=== PATIENT | female | born 1995 ===

== ENCOUNTER 2022-04-20 01:06 | Emergency (ER) | payer OTHER ==
[~2022-04-20] VITALS: Ht 162.6 cm; Wt 47.6 kg
[2022-04-20 01:30] VITALS: BP 145/92
--- NOTE | 2022-04-20 01:33 | NUR ---
TO LOBBY A/W BED AMBULATORY
--- NOTE | 2022-04-20 01:59 | NUR ---
PT TAKEN TO BED 1
--- NOTE | 2022-04-20 02:01 | NUR ---
RECEIVED IN BED 1 WITH C/O N/V/D X 1 WEEK
[2022-04-20] MEDS: KETOROLAC 60 MG/2 ML VIAL IM ONE (03:32)
[2022-04-20] MEDS ORDERED: CIPR500T4 PO ×2 (03:32→04:02)
[2022-04-20] MEDS ORDERED: PRED20TA5 PO ×2 (03:32→04:02)
[2022-04-20] MEDS ORDERED: IBUP-2213 PO ×2 (03:32→04:02)
[2022-04-20] MEDS ORDERED: ONDA8TAB87 PO ×2 (03:32→04:02)
[2022-04-20] MEDS: ONDANSETRON 4 MG ODT PO ONE (03:34)
[2022-04-20 03:41] VITALS: BP 145/92
--- NOTE | 2022-04-20 03:45 | NUR ---
Patient discharged with v/s stable. Written and verbal after care instructions given and explained. Patient alert, oriented and verbalized understanding of instructions. Ambulatory with steady gait. All questions addressed prior to discharge. ID band removed. Patient advised to follow up with PMD. Rx of CIPRO, IBUPROFEN, ZOFRAN, PREDNISONE given. Patient educated on indication of medication including possible reaction and side effects. Opportunity to ask questions provided and answered.
== END 2022-04-20 03:45 | disposition home or self-care (01) ==
LOC: MED 01:06
DX: R11.2 Nausea with vomiting, unspecified (principal); R19.7 Diarrhea, unspecified; M79.10 Myalgia, unspecified site; F12.90 Cannabis use, unspecified, uncomplicated; Z88.1 Allergy status to other antibiotic agents
CPT/HCPCS: 81002; 81025; 96372; 99283; J1885; Q0162

== ENCOUNTER 2022-06-16 12:42 | Emergency (ER) | payer OTHER ==
[~2022-06-16] VITALS: Ht 162.6 cm; Wt 49.9 kg
[~2022-06-16 12:42] MED LIST: CIPR500T4 PO; IBUP-2213 PO; ONDA8TAB87 PO; PRED20TA5 PO
[2022-06-16 12:57] VITALS: BP 144/89
[2022-06-16] MEDS ORDERED: ONDANSETRON 4 MG/2 ML VIAL ONE (13:15)
[2022-06-16] MEDS ORDERED: ONDANSETRON 4 MG/2 ML VIAL IVP ONE (13:15)
[2022-06-16] MEDS ORDERED: diphenhydrAMINE 50 MG/ML VIAL IVP ONE (13:50)
[2022-06-16] MEDS ORDERED: HALOPERIDOL IM 5 MG/ML VIAL IVP ONE (13:50)
--- NOTE | 2022-06-16 13:55 | NUR ---
26/F WALKED IN C/O NAUSEA AND VOMITING ACCOMPANIED BY BODY ACHE AND ABD PAIN ONSET YESTERDAY. STATES BEING EXPOSED TO A BABY WITH CROUP. AFEBRILE AT TRIAGE. HAD 4 EPISODES OF EMESIS TODAY. DENIES BLOODY EMESIS. DENIES DIARRHEA. IV ESTABLISHED ON R AC 20G. PMH: NONE
[2022-06-16 13:59] LABS: ALBUMIN 4.2 g/dL (3.4-5.0); ANION GAP 20.2 (8-16); CARBON DIOXIDE 22.3 mmol/L (21-32); CREATININE 0.8 mg/dL (0.6-1.3); POTASSIUM 4.5 mmol/L (3.5-5.1); TOTAL BILIRUBIN 2.8 mg/dL (0.0-1.0)
[2022-06-16 14:00] LABS: BASOPHILS # (AUTO) 0.1 K/uL (0.00-0.22); BASOPHILS % (AUTO) 0.6 % (0.0-2.0); EOSINOPHILS % (AUTO) 0.2 % (0.0-4.0); HEMATOCRIT 45.2 % (36-48); HEMOGLOBIN 15.3 g/dL (12.0-16.0); LYMPHOCYTES # (AUTO) 1.5 K/uL (2.5-16.5); LYMPHOCYTES % (AUTO) 8.4 % (20.5-51.1); MEAN CORPUSCULAR HEMOGLOBIN 30 pg (27-31); MEAN CORPUSCULAR HGB CONC 34 g/dL (33-37); MEAN CORPUSCULAR VOLUME 88.3 fL (80-94); MONOCYTES # (AUTO) 0.8 K/uL (0.8-1.0); MONOCYTES % (AUTO) 4.7 % (1.7-9.3); NEUTROPHILS # (AUTO) 15.3 K/uL (1.8-7.7); NEUTROPHILS % (AUTO) 86.1 % (42.2-75.2); PLATELET COUNT (AUTO) 258 K/uL (140-450); RED BLOOD CELL COUNT(AUTO) 5.11 MIL/uL (4.20-5.40); RED CELL DISTRIBUTION WIDTH 12.6 % (11.6-13.7); WHITE BLOOD COUNT (AUTO) 17.7 K/uL (4.8-10.8)
[2022-06-16] MEDS ORDERED: NACL 0.9% 500 ML IV ONE (14:50)
[2022-06-16] MEDS ORDERED: MECLIZINE 25 MG TAB PO ONE (15:20)
[2022-06-16] MEDS ORDERED: FAMO-90 PO (16:31)
[2022-06-16] MEDS ORDERED: ONDA-188 PO (16:31)
[2022-06-16] MEDS ORDERED: METO-485 PO (16:31)
[2022-06-16 16:55] VITALS: BP 123/67
--- NOTE | 2022-06-16 16:55 | NUR ---
Patient discharged with v/s stable. Written and verbal after care instructions given and explained. Patient verbalized understanding. Ambulatory with steady gait. All questions addressed prior to discharge. Advised to follow up with PMD.
== END 2022-06-16 16:55 | disposition home or self-care (01) ==
LOC: MED 12:42
DX: B34.9 Viral infection, unspecified (principal); R11.2 Nausea with vomiting, unspecified; E86.0 Dehydration; D72.829 Elevated white blood cell count, unspecified; Z88.1 Allergy status to other antibiotic agents; Z79.899 Other long term (current) drug therapy
CPT/HCPCS: 36415; 71045; 74177; 80053; 81002; 81025; 83690; 85025; 87804; 93005; 96361; 96374; 96375; 99285; J1200; J1630; J2405; J8597; Q9967